=== PATIENT | male | born 1935 | race Caucasian/White ===

== ENCOUNTER 2019-02-11 09:00 | Day surgery (SDC) | payer MEDICARE ==
[~2019-02-11] VITALS: Ht 167.6 cm; Wt 81.9 kg
[2019-02-11] VITALS (9 sets, daily range): BP systolic 105–130; BP diastolic 48–67
[2019-02-11] MEDS ORDERED: normal saline 1,000 ML IV SCH (09:25)
[2019-02-11] MEDS ORDERED: diphenhydrAMINE 25mg capsule PO PRN (09:25)
[2019-02-11] MEDS ORDERED: VITA-268 PO (09:50)
[2019-02-11] MEDS ORDERED: SIMV-45 PO (09:50)
[2019-02-11] MEDS ORDERED: ACET-2319 PO (09:50)
[2019-02-11] MEDS ORDERED: CLOP75TA8 PO (09:50)
[2019-02-11] MEDS ORDERED: NITR0.4T48 SL (09:50)
[2019-02-11] MEDS ORDERED: CHOL400T14 PO (09:50)
[2019-02-11] MEDS ORDERED: CHOL5000 PO (09:50)
[2019-02-11 10:12] LABS: BASOPHILS # (AUTO) 0.1 X10'3 (0-0.2); BASOPHILS % (AUTO) 0.7 % (0-1); EOSINOPHILS # (AUTO) 0.1 X10'3 (0-0.9); EOSINOPHILS % (AUTO) 1.1 % (0-6); HEMATOCRIT 40.3 % (42.0-52.0); HEMOGLOBIN 14.1 g/dl (14.0-17.9); LYMPHOCYTES # (AUTO) 1.6 X10'3 (1.1-4.8); LYMPHOCYTES % (AUTO) 19.1 % (21-51); MEAN CORPUSCULAR HEMOGLOBIN 32.4 PG (27.0-31.0); MEAN CORPUSCULAR HGB CONC 34.9 g/dL (33.0-36.5); MEAN PLATELET VOLUME 8.6 FL (7.4-10.4); MONOCYTES # (AUTO) 0.8 X10'3 (0-0.9); MONOCYTES % (AUTO) 9.7 % (2-12); NEUTROPHILS % (AUTO) 69.4 % (42-75); PLATELET COUNT 184 X10'3 (140-440); RED BLOOD COUNT 4.33 X10'6 (4.70-6.10); WHITE BLOOD COUNT 8.6 X10'3 (4.5-11.0)
[2019-02-11 10:21] LABS: ALBUMIN 3.7 G/DL (3.4-5.0); ANION GAP 10 (8-16); BLOOD UREA NITROGEN 26 MG/DL (7-18); CALCIUM 8.7 MG/DL (8.5-10.1); CHLORIDE 108 MMOL/L (99-107); GLUCOSE 102 MG/DL (70-104); POTASSIUM 4.2 MMOL/L (3.5-5.1); SODIUM 140 MMOL/L (135-145); TOTAL CARBON DIOXIDE 22.5 MMOL/L (24-32); eGFR 72 ML/MIN
[2019-02-11] MEDS ORDERED: LIDOcaine 1% (10mg/ml)w/preservative injection 20ml MDV ONE (10:30)
[2019-02-11] MEDS ORDERED: midazolam 2 mg/2 ml injection ONE ×2 (10:30→11:00)
[2019-02-11] MEDS ORDERED: iohexol 350 MG/ML 50ML vial IV ONE (10:30)
[2019-02-11] MEDS ORDERED: fentaNYL/PF 50MCG/1 ML 2ML syringe ONE (10:30)
[2019-02-11] MEDS ORDERED: iohexol 350MG/ML 100ml bottle IV ONE (10:31)
[2019-02-11] MEDS ORDERED: ondansetron/PF 4mg/2ml inj IV PRN (12:15)
[2019-02-11] MEDS ORDERED: normal saline 1000ml 1,000 ML IV SCH (12:15)
[2019-02-11] MEDS ORDERED: HYDROcodone/acetaminophen 10/325mg tab PO PRN (12:15)
[2019-02-11] MEDS ORDERED: proCHLORperazine 10 MG/2 ml inj IV PRN (12:15)
[2019-02-11] MEDS ORDERED: HYDROcodone/acetaminophen 5mg/325mg tablet PO PRN (12:15)
== END 2019-02-11 15:00 | disposition home or self-care (01) ==
LOC: SSTAY O 09:00
PROVIDERS: ATTEND Internal Medicine Cardiovascular Disease
DX: R94.39 Abnormal result of other cardiovascular function study (principal); I35.0 Nonrheumatic aortic (valve) stenosis; E78.5 Hyperlipidemia, unspecified; I10 Essential (primary) hypertension; Z86.73 Personal history of transient ischemic attack (TIA), and cerebral infarction without residual deficits; Z79.899 Other long term (current) drug therapy
CPT/HCPCS: 36415; 80048; 83735; 85025; 85610; 93005; 93460; 99152; 99153; C1769; C1894; J1644; J2001; J2250; J3010; J7030; Q0163; Q9967; A4620; A6258; C1760